=== PATIENT | female | born 1955 | race Caucasian/White ===

== ENCOUNTER → 2020-06-13 10:30 | Outpatient (CLI) | payer MEDICARE, OTHER, SELFPAY ==
[2020-06-13] MEDS: COVID-19 VACC #1, MRNA(MOD) 100 MCG/0.5 ML VIAL IM (10:43)
== END ==
PROVIDERS: Visit Provider Internal Medicine
DX: Z23 Encounter for immunization (principal)
CPT/HCPCS: 0011A; 91301

== ENCOUNTER → 2020-07-12 09:58 | Outpatient (CLI) | payer MEDICARE, OTHER, SELFPAY ==
[2020-07-12] MEDS: COVID-19 VACC #2, MRNA(MOD) 100 MCG/0.5 ML VIAL IM (10:06)
== END ==
PROVIDERS: Visit Provider Internal Medicine
DX: Z23 Encounter for immunization (principal)
CPT/HCPCS: 0012A; 91301

== ENCOUNTER → 2021-01-04 08:14 | Outpatient (CLI) | payer MEDICARE, OTHER, SELFPAY ==
[2021-01-04 08:36] LABS: Hematocrit 39.4 % (36-46); Hemoglobin 13.1 g/dL (12.0-16.0); Mean Corpuscular HGB Conc 33.2 % (30-36); Mean Corpuscular Hemoglobin 29.5 PG (26-34); Mean Corpuscular Volume 88.7 fL (80-100); Platelet Count 163 X10^3/uL (150-400); Red Blood Cell Count 4.44 X10^6/uL (4.0-5.2); Red Cell Distribution Width 12.9 % (11.6-14.8); White Blood Cell Count 5.7 X10^3/uL (4.5-11.0)
[2021-01-04 09:03] LABS: Alanine Aminotransferase 21 IU/L (<35); Albumin 4.3 g/dL (3.5-5.0); Albumin Globulin Ratio 1.5 (1.0-2.8); Alkaline Phosphatase 60 U/L (38-126); Aspartate Aminotransferase 20 IU/L (14-36); BUN Creatinine Ratio 21.9 (6-22); Bilirubin Total 0.4 mg/dL (0.2-1.3); Blood Urea Nitrogen 14 mg/dL (7-17); Calcium 9.1 mg/dL (8.4-10.2); Carbon Dioxide 28 mmol/L (22-32); Chloride 103 mmol/L (98-107); Cholesterol 154 mg/dL (140-199); Estimated Glomerular Filt Rate > 60.0 mL/min (>60); Globulin 2.8 g/dL (1.7-4.1); Glucose 103 mg/dL (80-110); HDL Cholesterol 51 mg/dL (40-60); HEMOLYSIS < 15 (0-50); LDL Cholesterol Calculated 73 mg/dL (<100); Potassium 4.4 mmol/L (3.4-5.1); Sodium 139 mmol/L (137-145); Total Protein 7.1 g/dL (6.3-8.2); Triglycerides 150 mg/dL (35-150)
[2021-01-04 09:08] LABS: Hemoglobin A1C% w Est Avg Glu 5.5 % (4.0-6.0)
[2021-01-04 09:33] LABS: TSH w/ Reflex to FT4 2.85 uIU/mL (0.47-4.68)
== END ==
PROVIDERS: PCP Registered Nurse Diabetes Educator; Referring Provider Registered Nurse Diabetes Educator; Visit Provider Registered Nurse Diabetes Educator
DX: R73.03 Prediabetes (principal); I10 Essential (primary) hypertension
CPT/HCPCS: 36415; 80053; 80061; 83036; 84443; 85027

== ENCOUNTER → 2021-10-23 08:35 | Outpatient (CLI) | payer MEDICARE, OTHER, SELFPAY ==
--- NOTE | 2021-10-23 | DI.MG.S_ITS ---
BILATERAL DIGITAL SCREENING MAMMOGRAM 3D/2D WITH CAD: 10/23/2021 CLINICAL: Routine screening. Comparison is made to exams dated: 05/09/2020 mammogram - [facility], 03/31/2018 mammogram, 04/03/2017 mammogram, and 03/05/2016 mammogram - [facility]. The tissue of both breasts is predominantly fatty. Current study was also evaluated with a Computer Aided Detection (CAD) system. There are benign calcifications in the right breast. No significant masses, calcifications, or other findings are seen in either breast. There has been no significant interval change. IMPRESSION: BENIGN There is no mammographic evidence of malignancy. A 1 year screening mammogram is recommended. Based on the Tyrer Cuzick model (a risk assessment model) the patient's lifetime risk is 4.7% and her 10 year risk is 2.4%. According to the ACR, ACS, and NCCN guidelines, an annual breast MRI exam along with mammogram is recommended if the patient's lifetime risk is 20% or greater. This exam was interpreted at Station ID: [id number]. NOTE: For mammograms, a report in lay terms will be sent to the patient. Approximately 15% of breast malignancies will not be visualized mammographically. In the management of a palpable breast mass, a negative mammogram must not discourage biopsy of a clinically suspicious lesion. Electronically Signed By: Trevin houser/shana:10/23/2021 10:38:45 letter sent: Normal Exam ACR BI-RADS Category 2: Benign Finding(s) 3342F
== END ==
PROVIDERS: PCP Registered Nurse Diabetes Educator; Referring Provider Registered Nurse Diabetes Educator; Visit Provider Registered Nurse Diabetes Educator
DX: Z12.31 Encounter for screening mammogram for malignant neoplasm of breast (principal)
CPT/HCPCS: 77063; 77067

== ENCOUNTER → 2022-03-19 09:36 | Outpatient (CLI) | payer MEDICARE, OTHER, SELFPAY ==
[2022-03-19 10:26] LABS: Mean Corpuscular HGB Conc 34.1 % (30-36); Mean Corpuscular Volume 87.8 fL (80-100); Platelet Count 141 X10^3/uL (150-400); Red Blood Cell Count 4.33 X10^6/uL (4.0-5.2); Red Cell Distribution Width 12.5 % (11.6-14.8); White Blood Cell Count 5.1 X10^3/uL (4.5-11.0)
[2022-03-19 10:47] LABS: Alanine Aminotransferase 23 IU/L (<35); Albumin 4.2 g/dL (3.5-5.0); Albumin Globulin Ratio 1.2 (1.0-2.8); Alkaline Phosphatase 63 U/L (38-126); Aspartate Aminotransferase 19 IU/L (14-36); BUN Creatinine Ratio 19.4 (6-22); Bilirubin Total 0.5 mg/dL (0.2-1.3); Blood Urea Nitrogen 12 mg/dL (7-17); Calcium 8.7 mg/dL (8.4-10.2); Carbon Dioxide 26 mmol/L (22-32); Chloride 102 mmol/L (98-107); Cholesterol 173 mg/dL (140-199); Estimated Glomerular Filt Rate > 60 mL/min (>60); Globulin 3.5 g/dL (1.7-4.1); Glucose 99 mg/dL (80-110); HDL Cholesterol 50 mg/dL (40-60); HEMOLYSIS < 15 (0-50); LDL Cholesterol Calculated 100 mg/dL (<100); Potassium 4.4 mmol/L (3.4-5.1); Sodium 139 mmol/L (137-145); Total Protein 7.7 g/dL (6.3-8.2); Triglycerides 116 mg/dL (35-150)
[2022-03-19 11:18] LABS: TSH w/ Reflex to FT4 2.93 uIU/mL (0.47-4.68)
== END ==
PROVIDERS: PCP Registered Nurse Diabetes Educator; Referring Provider Registered Nurse Diabetes Educator; Visit Provider Registered Nurse Diabetes Educator
DX: R73.01 Impaired fasting glucose (principal); I10 Essential (primary) hypertension
CPT/HCPCS: 36415; 80053; 80061; 84443; 85027

== ENCOUNTER → 2022-08-13 08:52 | Outpatient (CLI) | payer MEDICARE, OTHER, SELFPAY ==
[2022-08-13 09:52] LABS: Add Manual Diff / Slide Review NO; Basophils Absolute Auto 0 /uL (0-100); Basophils Percent Auto 0.3 % (0-2); Eosinophils Absolute Auto 100 /uL (0-450); Eosinophils Percent Auto 1.9 % (2-4); Hematocrit 38.7 % (36-46); Hemoglobin 13.2 g/dL (12.0-16.0); Lymphocytes Absolute Auto 1100 /uL (1100-4500); Mean Corpuscular HGB Conc 34.2 % (30-36); Mean Corpuscular Hemoglobin 30.3 PG (26-34); Mean Corpuscular Volume 88.5 fL (80-100); Monocytes Absolute Auto 300 /uL (0-900); Neutrophils Absolute Auto 3400 /uL (1500-7000); Neutrophils Percent Auto 67.8 % (50-75); Platelet Count 158 X10^3/uL (150-400); Red Blood Cell Count 4.37 X10^6/uL (4.0-5.2); Red Cell Distribution Width 12.8 % (11.6-14.8)
[2022-08-13 10:14] LABS: BUN Creatinine Ratio 16.2 (6-22); Blood Urea Nitrogen 12 mg/dL (7-17); Carbon Dioxide 27 mmol/L (22-32); Chloride 103 mmol/L (98-107); Estimated Glomerular Filt Rate > 60 mL/min (>60); Glucose 110 mg/dL (80-110); HEMOLYSIS < 15 (0-50); Potassium 4.7 mmol/L (3.4-5.1); Sodium 136 mmol/L (137-145)
== END ==
PROVIDERS: PCP Registered Nurse Diabetes Educator; Referring Provider Registered Nurse Diabetes Educator; Visit Provider Registered Nurse Diabetes Educator
DX: D69.6 Thrombocytopenia, unspecified (principal); I10 Essential (primary) hypertension
CPT/HCPCS: 36415; 80048; 85025

== ENCOUNTER → 2022-10-25 09:26 | Outpatient (CLI) | payer MEDICARE, OTHER, SELFPAY ==
--- NOTE | 2022-10-25 | DI.MG.S_ITS ---
BILATERAL DIGITAL SCREENING MAMMOGRAM 3D/2D WITH CAD: 10/25/2022 CLINICAL: Routine screening. Comparison is made to exams dated: 10/23/2021 mammogram - [facility], 05/09/2020 mammogram - [facility], and 03/31/2018 mammogram - [facility]. Both breasts are almost entirely fatty (category a/<25% glandular tissue). Current study was also evaluated with a Computer Aided Detection (CAD) system. There are benign calcifications in the right breast. No significant masses, calcifications, or other findings are seen in either breast. There has been no significant interval change. IMPRESSION: BENIGN There is no mammographic evidence of malignancy. A 1 year screening mammogram is recommended. Based on the Tyrer Cuzick model (a risk assessment model) the patient's lifetime risk is 4.5% and her 10 year risk is 2.3%. According to the ACR, ACS, and NCCN guidelines, an annual breast MRI exam along with mammogram is recommended if the patient's lifetime risk is 20% or greater. This exam was interpreted at Station ID: [id number]. NOTE: For mammograms, a report in lay terms will be sent to the patient. Approximately 15% of breast malignancies will not be visualized mammographically. In the management of a palpable breast mass, a negative mammogram must not discourage biopsy of a clinically suspicious lesion. Electronically Signed By: Sloan castillo/shana:10/30/2022 17:58:51 letter sent: Normal Exam ACR BI-RADS Category 2: Benign Finding(s) 3342F
== END ==
PROVIDERS: PCP Registered Nurse Diabetes Educator; Referring Provider Registered Nurse Diabetes Educator; Visit Provider Registered Nurse Diabetes Educator
DX: Z12.31 Encounter for screening mammogram for malignant neoplasm of breast (principal)
CPT/HCPCS: 77063; 77067

== ENCOUNTER 2022-11-05 07:01 | Day surgery (SDC) | payer MEDICARE, OTHER, SELFPAY ==
--- NOTE | 2022-11-05 | PATH_ITS ---
[facility] Accession Number: [id number] No. of containers..01 Tissue . 01 Material submitted: . colon - SIGMOID POLYP . 01 Diagnosis: Sigmoid Colon, Polyp: Colonic mucosa with no diagnostic abnormality, consistent with polypoid redundancy. Additional levels were examined. MRV 11/14/2022 1500 Local . 01 Electronically signed: . Dariana Chicas MD, Pathologist NPI- [id number] . 01 Gross description: . SIGMOID POLYP: Received in formalin is 1 fragment(s) of hoffman, soft tissue measuring 0.7 x 0.3 x 0.2 cm submitted entirely in 1 cassette(s) /ACACIA 11/11/2022 1706 Local . 01 Pathologist provided ICD-10: K63.5 . 01 CPT . 167184 Specimen Comment: A courtesy copy of this report has been sent to [phone] Performed at: 01 [facility] [address] [place] [address], [place], [place] [id number] MD Brannon Martinez MD Phone: [phone]
[2022-11-05 07:14] VITALS: BMI 39.1
[2022-11-05 07:22] VITALS: BP 146/77; PULSE 81; RESP 17; TEMP 37; O2SAT 93
[2022-11-05] MEDS: LACTATED RINGERS 1,000 ML 200 ML IV (07:24)
--- NOTE | 2022-11-05 08:17 | PM.HP.1 ---
History of Present Illness History of Present Illness Date Patient Seen: 11/05/22 Time Patient Seen: 08:17 Chief complaint: Screening Colonoscopy Narrative: 67-year-old woman here for screening colonoscopy. Personal history of colonic polyps. Last colonoscopy 2015. No family history of this or malignancy. No abdominal concerns including pain blood per rectum unintentional weight loss nausea vomiting. [facility] Medical History Anxiety Essential hypertension Impaired fasting blood sugar Obstructive sleep apnea Prediabetes Social History household members: spouse Smoking Status: Never smoker alcohol intake: never Meds Home Medications and Allergies Home Medications Medication Instructions Recorded Confirmed Type lisinopril 40 mg tablet 40 mg PO DAILY #90 tabs 08/20/22 11/05/22 Rx sertraline 25 mg tablet 25 mg PO DAILY #90 tabs 08/20/22 11/05/22 Rx aspirin 81 mg tablet 81 mg PO DAILY 11/05/22 11/05/22 History Allergies Allergy/AdvReac Type Severity Reaction Status Date / Time No Known Drug Allergies Allergy Verified 11/05/22 07:13 Exam Vital Signs (past 8 hours): - 11/05/22 07:22 Temperature 98.6 F Pulse Rate 81 Respiratory Rate 17 Blood Pressure 146/77 H Pulse Oximetry 93 Oxygen Delivery Method Room Air Oxygen Delivery Method Room Air Narrative Exam Narrative: General adult woman alert oriented no acute distress Abdomen soft nontender nondistended Assessment & Plan Assessment and plan (1) Personal history of colonic polyps: Status: Acute Assessment & Plan narrative: The patient requires colorectal screening and colonoscopy is recommended. Technical details were discussed. Risks, benefits, alternatives explained. Risks including but not limited to myocardial infarction, aspiration, bleeding, pain, missed lesion, incomplete examination, need for further radiographic studies, colonic perforation, and need for major abdominal surgery were discussed. All questions were answered to their satisfaction, and they are in agreement with this plan.
[2022-11-05 08:49] VITALS: BP 106/39; PULSE 76; RESP 16; TEMP 36; O2SAT 95
--- NOTE | 2022-11-05 08:52 | PM.OP.COLON ---
Operative Date/Time/Diagnoses Date of procedure: 11/05/22 Time of procedure: 08:52 Pre-op diagnosis: Personal history of colonic polyps Colorectal screening. Post-op diagnosis: other (Colonic polyp x1) Procedure & Clinicians Study performed: Colonoscopy and polypectomy Same procedure as scheduled: Yes Indications: Colorectal screening Surgeon: Jamar Mendez Procedure Notes Procedure in detail: The history and physical was performed/updated and the patient is ASA class is 2. The procedure was discussed in detail with the patient. Potential risks complications including infection, bleeding, missed diagnosis, perforation, need for surgery, and were explained. Their questions were answered and informed consent was obtained. Patient was brought to the procedure room and placed standard monitoring equipment. The patient's vital signs were monitored continuously throughout the entire procedure. Prior to starting time-out was performed. The patient was placed in the left lateral recumbent position. Procedural sedation was administered by anesthesia. Examination began with a thorough inspection of the perianal area there was no evidence of fissures, fistulae, external hemorrhoids or cutaneous malignancy. The colonoscopy scope was then placed into the anal canal and was advanced to the cecum, which was identified by the ileocecal valve, the appendiceal orifice and the confluence of the taenia. The scope was then slowly withdrawn examining colon thoroughly in all directions, irrigating it of any residual stool. Sigmoid colon-3 mm polyp removed with biopsy forceps. Extensive diverticulosis The patient tolerated the procedure well. They will be discharged once criteria are met. The prep was of good/excellent quality. The withdrawl time was 7 minutes. Specimen(s): other (Sigmoid colonic polyp) Impression: Colonic polyp x1 Post-procedure Recommendations: High fiber diet Plan for aftercare: Follow-up is dependent on pathology findings likely 5 years Disposition: same day surgery
[2022-11-05 08:54] VITALS: BP 100/32; PULSE 90; RESP 13; O2SAT 95
[2022-11-05 08:59] VITALS: BP 128/62; PULSE 88; RESP 19; O2SAT 96
[2022-11-05 09:11] VITALS: BP 113/74; PULSE 80; RESP 16; TEMP 36.2; O2SAT 97
== END 2022-11-05 09:21 | disposition home or self-care (01) ==
PROVIDERS: PCP Registered Nurse Diabetes Educator; Referring Provider Surgery; Visit Provider Surgery
PROC: 0DJD8ZZ Inspection of Lower Intestinal Tract, Via Natural or Artificial Opening Endoscopic (ICD-10-PCS; CPT 45378; principal; 2022-11-05 08:15)
DX: Z12.11 Encounter for screening for malignant neoplasm of colon (principal); Z86.010 Personal history of colon polyps; K57.30 Diverticulosis of large intestine without perforation or abscess without bleeding; K63.5 Polyp of colon
CPT/HCPCS: 45380; J2704; J3010

== ENCOUNTER → 2023-03-25 09:49 | Outpatient (CLI) | payer MEDICARE, OTHER, SELFPAY ==
[2023-03-25 10:48] LABS: Hematocrit 40.7 % (36-46); Hemoglobin 13.8 g/dL (12.0-16.0); Mean Corpuscular HGB Conc 33.8 % (30-36); Mean Corpuscular Hemoglobin 29.6 PG (26-34); Mean Corpuscular Volume 87.6 fL (80-100); Platelet Count 186 X10^3/uL (150-400); Red Blood Cell Count 4.65 X10^6/uL (4.0-5.2); Red Cell Distribution Width 12.6 % (11.6-14.8); White Blood Cell Count 6.5 X10^3/uL (4.5-11.0)
[2023-03-25 11:10] LABS: Alanine Aminotransferase 24 IU/L (<35); Albumin 4.4 g/dL (3.5-5.0); Albumin Globulin Ratio 1.2 (1.0-2.8); Alkaline Phosphatase 57 U/L (38-126); BUN Creatinine Ratio 21.7 (6-22); Bilirubin Total 0.8 mg/dL (0.2-1.3); Blood Urea Nitrogen 15 mg/dL (7-17); Calcium 9.5 mg/dL (8.4-10.2); Carbon Dioxide 27 mmol/L (22-32); Chloride 102 mmol/L (98-107); Cholesterol 196 mg/dL (140-199); Estimated Glomerular Filt Rate > 60 mL/min (>60); Globulin 3.7 g/dL (1.7-4.1); Glucose 106 mg/dL (80-110); HDL Cholesterol 56 mg/dL (40-60); LDL Cholesterol Calculated 111 mg/dL (<100); Potassium 4.2 mmol/L (3.4-5.1); Sodium 135 mmol/L (137-145); Total Protein 8.1 g/dL (6.3-8.2); Triglycerides 146 mg/dL (35-150)
[2023-03-28 14:39] LABS: HEMOLYSIS 22 (0-50)
[2023-03-28 14:42] LABS: Aspartate Aminotransferase 28 IU/L (14-36)
== END ==
LOC: LAB 09:50
PROVIDERS: PCP Registered Nurse Diabetes Educator; Referring Provider Registered Nurse Diabetes Educator; Visit Provider Registered Nurse Diabetes Educator
DX: I10 Essential (primary) hypertension (principal); R73.01 Impaired fasting glucose; D69.6 Thrombocytopenia, unspecified
CPT/HCPCS: 36415; 80053; 80061; 85027

== ENCOUNTER → 2023-06-27 09:24 | Outpatient (CLI) | payer MEDICARE, OTHER, SELFPAY ==
--- NOTE | 2023-06-27 09:25 | DI.RAD.S_ITS ---
Bone Density Report Name: KARTHIKEYAN PEARSON Age: 68 Sex: Female Ethnicity: White Date of : 1955 Indication: postmenopausal; screening for osteoporosis; Referring Provider: RICK NIXON Study: Bone densitometry was performed. Exam Date: June 27, 2023 Accession number: [id number] Bone Density: Region BMD T-score Z-score Classification AP Spine(L1-L4) 1.158 1.0 3.0 Normal Femoral Neck (Left) 0.908 0.5 2.2 Normal Total Hip (Left) 1.051 0.9 2.3 Normal Femoral Neck (Right) 0.811 -0.3 1.3 Normal Total Hip (Right) 0.961 0.2 1.5 Normal Total Hip Mean 1.006 0.6 1.9 Normal World Health Organization criteria for BMD impression classify patients as: Normal (T-score at or above -1.0), Osteopenia (T-score between -1.0 and -2.5), or Osteoporosis (T-score at or below -2.5). 10-year Fracture Risk: FRAX not reported because: All T-scores for Spine Total, Hip Total, Femoral Neck at or above -1.0 Impression: The patient has normal bone mass. Discussion: BONE DENSITY IS ABOVE THE MINIMUM DESIRABLE LEVEL AT ALL SKELETAL SITES TESTED. This patient's bone mineral density is above the minimum desirable level (T-score -1.0 or better) at all sites measured. The patient should follow a healthful lifestyle (good nutrition with adequate calcium and vitamin D, and appropriate weight-bearing exercise). Follow-Up: Consider repeating this study in 5 years or sooner if there is some new clinical indication. Reported by: KEEGAN JENSEN M.D. on 06/27/2023 10:01:00 AM.
== END ==
LOC: RAD 09:24
PROVIDERS: PCP Registered Nurse Diabetes Educator; Referring Provider Registered Nurse Diabetes Educator; Visit Provider Registered Nurse Diabetes Educator
DX: Z13.820 Encounter for screening for osteoporosis (principal); Z78.0 Asymptomatic menopausal state
CPT/HCPCS: 77080

== ENCOUNTER → 2023-07-07 11:15 | Outpatient (CLI) | payer MEDICARE, OTHER, SELFPAY ==
--- NOTE | 2023-07-07 11:17 | DI.RAD.S_ITS ---
PROCEDURE: XR HIP W PEL IF DONE MOE MIN 4V INDICATIONS: eval bilateral hip pain, right lower extremity pain TECHNIQUE: AP pelvis with lateral view(s) of the right hip(s). COMPARISON: None. FINDINGS: Bones: No fractures or dislocations. Severe right hip joint osteoarthritic changes are seen. Moderate left hip joint osteoarthritic changes also noted. No definite avascular necrosis of femoral head. Pelvic ring appears intact. No suspicious bony lesions. Soft tissues: The visualized bowel gas pattern is normal. No suspicious soft tissue calcifications. IMPRESSION: Severe right hip joint osteoarthritis and moderate left hip joint osteoarthritis. No pelvic or hip fracture. No evidence of avascular necrosis. Dictated by: Danish Martínez M.D. on 07/07/2023 at 14:24 Approved by: Danish Martínez M.D. on 07/07/2023 at 14:25
--- NOTE | 2023-07-07 11:17 | DI.RAD.S_ITS ---
PROCEDURE: XR LUMBAR SPINE MIN 4V INDICATIONS: eval bilateral hip pain, low back pain, RLE pain TECHNIQUE: 5 views of the lumbar spine were acquired, including bilateral oblique views. COMPARISON: None. FINDINGS: Bones: 5 nonrib-bearing vertebrae are present. There is mild leftward curvature of thoracolumbar spine centered at L2 level. Loss of disc height, degenerative endplate changes and bilateral facet arthrosis throughout lumbar spine is seen. No vertebral body compression fractures. No suspicious bony lesions. Soft tissues: Overlying bowel gas pattern is normal. No suspicious soft tissue calcifications. Oblique images: No pars defects. IMPRESSION: Mild levoscoliosis of thoracolumbar spine centered at L2 level. No acute compression fracture or significant spondylolisthesis. [id number] degenerative disc disease throughout lumbar spine. No gross pars defects. Dictated by: Danish Martínez M.D. on 07/07/2023 at 14:25 Approved by: Danish Martínez M.D. on 07/07/2023 at 14:32
== END ==
PROVIDERS: PCP Registered Nurse Diabetes Educator; Referring Provider Registered Nurse Diabetes Educator; Visit Provider Registered Nurse Diabetes Educator
DX: M16.0 Bilateral primary osteoarthritis of hip (principal); M51.36 Other intervertebral disc degeneration, lumbar region; M25.551 Pain in right hip; M25.552 Pain in left hip; M79.604 Pain in right leg; M54.50 Low back pain, unspecified; G89.29 Other chronic pain; M41.9 Scoliosis, unspecified
CPT/HCPCS: 72110; 73522

== ENCOUNTER → 2023-11-17 11:06 | Outpatient (CLI) | payer MEDICARE, OTHER, SELFPAY ==
--- NOTE | 2023-11-17 11:07 | DI.MG.S_ITS ---
BILATERAL DIGITAL SCREENING MAMMOGRAM 3D/2D WITH CAD: 11/17/2023 CLINICAL: Routine screening. Comparison is made to exams dated: 10/25/2022 mammogram, 10/23/2021 mammogram - , and 05/09/2020 mammogram - [facility]. There are scattered areas of fibroglandular density in both breasts (category b / 25%-50% glandular tissue). Current study was also evaluated with a Computer Aided Detection (CAD) system. There are benign calcifications in the right breast. No significant masses, calcifications, or other findings are seen in either breast. There has been no significant interval change. IMPRESSION: BENIGN There is no mammographic evidence of malignancy. A 1 year screening mammogram is recommended. Based on the Tyrer Cuzick model (a risk assessment model) the patient's lifetime risk is 6.4% and her 10 year risk is 3.5%. According to the ACR, ACS, and NCCN guidelines, an annual breast MRI exam along with mammogram is recommended if the patient's lifetime risk is 20% or greater. This exam was interpreted at Station ID: [id number]. NOTE: For mammograms, a report in lay terms will be sent to the patient. Approximately 15% of breast malignancies will not be visualized mammographically. In the management of a palpable breast mass, a negative mammogram must not discourage biopsy of a clinically suspicious lesion. Electronically Signed By: Dung garcia/shana:11/17/2023 11:51:29 letter sent: Normal Exam ACR BI-RADS Category 2: Benign Finding(s) 3342F
== END ==
LOC: MAMMO 11:07
PROVIDERS: PCP Registered Nurse Diabetes Educator; Referring Provider Registered Nurse Diabetes Educator; Visit Provider Registered Nurse Diabetes Educator
DX: Z12.31 Encounter for screening mammogram for malignant neoplasm of breast (principal); R92.323 Mammographic fibroglandular density, bilateral breasts
CPT/HCPCS: 77063; 77067

== ENCOUNTER → 2024-03-30 11:04 | Outpatient (CLI) | payer MEDICARE, OTHER, SELFPAY ==
[2024-03-30 11:44] LABS: Hematocrit 35.6 % (36-46); Hemoglobin 11.7 g/dL (12.0-16.0); Mean Corpuscular HGB Conc 32.9 % (30-36); Mean Corpuscular Hemoglobin 28.2 PG (26-34); Mean Corpuscular Volume 85.8 fL (80-100); Platelet Count 194 X10^3/uL (150-400); Red Blood Cell Count 4.15 X10^6/uL (4.0-5.2); Red Cell Distribution Width 13.2 % (11.6-14.8); White Blood Cell Count 5.2 X10^3/uL (4.5-11.0)
[2024-03-30 12:06] LABS: Alanine Aminotransferase 17 IU/L (<35); Albumin 4.2 g/dL (3.5-5.0); Albumin Globulin Ratio 1.4 (1.0-2.8); Alkaline Phosphatase 54 U/L (38-126); Aspartate Aminotransferase 22 IU/L (14-36); BUN Creatinine Ratio 45.3 (6-22); Bilirubin Total 0.3 mg/dL (0.2-1.3); Blood Urea Nitrogen 39 mg/dL (7-17); Calcium 9.4 mg/dL (8.4-10.2); Carbon Dioxide 23 mmol/L (22-32); Chloride 105 mmol/L (98-107); Cholesterol 173 mg/dL (140-199); Estimated Glomerular Filt Rate > 60 mL/min (>60); Globulin 2.9 g/dL (1.7-4.1); Glucose 103 mg/dL (80-110); HDL Cholesterol 54 mg/dL (40-60); HEMOLYSIS < 15 (0-50); LDL Cholesterol Calculated 84 mg/dL (<100); Potassium 5.2 mmol/L (3.4-5.1); Sodium 135 mmol/L (137-145); Total Protein 7.1 g/dL (6.3-8.2); Triglycerides 173 mg/dL (35-150)
== END ==
PROVIDERS: PCP Registered Nurse Diabetes Educator; Referring Provider Registered Nurse Diabetes Educator; Visit Provider Registered Nurse Diabetes Educator
DX: E78.5 Hyperlipidemia, unspecified (principal); R73.01 Impaired fasting glucose; I10 Essential (primary) hypertension
CPT/HCPCS: 36415; 80053; 80061; 83036; 85027

== ENCOUNTER → 2024-04-01 14:07 | Outpatient (CLI) | payer MEDICARE, OTHER, SELFPAY ==
[2024-04-02 11:08] LABS: Fecal Immunochemical Test Negative (Negative)
== END ==
PROVIDERS: PCP Registered Nurse Diabetes Educator; Referring Provider Registered Nurse Diabetes Educator; Visit Provider Registered Nurse Diabetes Educator
DX: Z12.11 Encounter for screening for malignant neoplasm of colon (principal)
CPT/HCPCS: 82274

== ENCOUNTER → 2024-05-24 09:46 | Outpatient (CLI) | payer MEDICARE, OTHER, SELFPAY ==
[2024-05-24 11:13] LABS: Hematocrit 33.4 % (36-46); Hemoglobin 11.3 g/dL (12.0-16.0); Mean Corpuscular HGB Conc 33.9 % (30-36); Mean Corpuscular Hemoglobin 28.2 PG (26-34); Mean Corpuscular Volume 83.3 fL (80-100); Platelet Count 191 X10^3/uL (150-400); Red Blood Cell Count 4.01 X10^6/uL (4.0-5.2); Red Cell Distribution Width 13.9 % (11.6-14.8); White Blood Cell Count 5.1 X10^3/uL (4.5-11.0)
[2024-05-24 11:37] LABS: HEMOLYSIS < 15 (0-50); Iron 44 ug/dL (37-170)
[2024-05-24 11:42] LABS: BUN Creatinine Ratio 21.1 (6-22); Blood Urea Nitrogen 16 mg/dL (7-17); Calcium 8.9 mg/dL (8.4-10.2); Carbon Dioxide 24 mmol/L (22-32); Chloride 106 mmol/L (98-107); Estimated Glomerular Filt Rate > 60 mL/min (>60); Glucose 94 mg/dL (80-110); HEMOLYSIS < 15 (0-50); Potassium 4.7 mmol/L (3.4-5.1); Sodium 138 mmol/L (137-145)
[2024-05-24 11:49] LABS: Percent Iron Saturation 15 % (15-50); Total Iron Binding Capacity 289 ug/dL (265-497); Transferrin 259 mg/dL (206-381)
[2024-05-24 12:18] LABS: Ferritin 12 ng/mL (11-264)
[2024-05-24 12:31] LABS: Vitamin B12 593 pg/mL (239-931)
== END ==
PROVIDERS: PCP Registered Nurse Diabetes Educator; Referring Provider Registered Nurse Diabetes Educator; Visit Provider Registered Nurse Diabetes Educator
DX: D64.9 Anemia, unspecified (principal); R79.9 Abnormal finding of blood chemistry, unspecified
CPT/HCPCS: 80048; 82607; 82728; 83540; 83550; 85027

== ENCOUNTER 2024-07-26 10:46 | Emergency (ER) | payer MEDICARE, OTHER, SELFPAY ==
[2024-07-26 10:52] VITALS: BP 162/70; PULSE 92; RESP 18; TEMP 36.1; O2SAT 97; BMI 33.5
--- NOTE | 2024-07-26 11:08 | EKG_ITS ---
[address] [address] Test Date: 2024-07-26 Pat Name: Michelle Gonzalez Department: Room: Gender: Female Training Director: GARRY : 1955 Requested By: Order Number: [id number] Reading MD: Lorne Rosales MD Measurements Intervals [place] Rate: 90 P: 50 W[place]: 124 QRS: 43 QRSD: 106 T: 92 QT: 350 QTc: 428 Interpretive Statements Normal sinus rhythm Incomplete left bundle branch block Nonspecific T wave abnormality NO PRIOR TRACING Electronically Signed On 07-26-2024 14:31:27 PDT by Lorne Rosales MD
[2024-07-26 11:16] LABS: Add Manual Diff / Slide Review NO; Basophils Absolute Auto 100 /uL (0-100); Basophils Percent Auto 0.8 % (0-2); Eosinophils Absolute Auto 100 /uL (0-450); Eosinophils Percent Auto 0.7 % (2-4); Hematocrit 43.4 % (36-46); Hemoglobin 14.2 g/dL (12.0-16.0); Lymphocytes Absolute Auto 1500 /uL (1100-4500); Lymphocytes Percent Auto 13.7 % (25-40); Mean Corpuscular HGB Conc 32.8 % (30-36); Mean Corpuscular Hemoglobin 27.7 PG (26-34); Mean Corpuscular Volume 84.4 fL (80-100); Monocytes Absolute Auto 700 /uL (0-900); Neutrophils Absolute Auto 8700 /uL (1500-7000); Neutrophils Percent Auto 78.8 % (50-75); Platelet Count 242 X10^3/uL (150-400); Red Blood Cell Count 5.14 X10^6/uL (4.0-5.2)
[2024-07-26 11:23] LABS: Alanine Aminotransferase 23 IU/L (<35); Albumin 4.9 g/dL (3.5-5.0); Albumin Globulin Ratio 1.5 (1.0-2.8); Alkaline Phosphatase 62 U/L (38-126); Aspartate Aminotransferase 27 IU/L (14-36); BUN Creatinine Ratio 13.3 (6-22); Bilirubin Total 0.6 mg/dL (0.2-1.3); Blood Urea Nitrogen 11 mg/dL (7-17); Calcium 9.6 mg/dL (8.4-10.2); Carbon Dioxide 24 mmol/L (22-32); Chloride 103 mmol/L (98-107); Estimated Glomerular Filt Rate > 60 mL/min (>60); Globulin 3.2 g/dL (1.7-4.1); Glucose 133 mg/dL (70-99); HEMOLYSIS 15 (0-50); Lipase 116 U/L (23-300); Potassium 4.3 mmol/L (3.4-5.1); Sodium 140 mmol/L (137-145); Total Protein 8.1 g/dL (6.3-8.2)
[2024-07-26 11:46] LABS: Urine Volume 10mL (spun)
[2024-07-26 11:47] LABS: Squamous Epithelial Cell Urine 10-30 /HPF (0-5/HPF); WBC Urine 30-100/HPF (0-5/HPF)
[2024-07-26 11:48] LABS: Bacteria Urine Many (>30)
[2024-07-26 11:49] LABS: Culture Indicated Urine Specimen Cultured; RBC Urine 0-1/HPF (0-5/HPF)
[2024-07-26 12:13] VITALS: PULSE 82; O2SAT 98
[2024-07-26 12:14] VITALS: BP 157/69; PULSE 71; O2SAT 98
[2024-07-26 12:30] VITALS: BP 132/63; PULSE 69; O2SAT 97
--- NOTE | 2024-07-26 12:31 | DI.US.S_ITS ---
PROCEDURE: US ABDOMEN LIMITED INDICATIONS: RUQ PAIN TECHNIQUE: Real-time scanning was performed of the abdominal and retroperitoneal organs, with image documentation. COMPARISON: None. FINDINGS: Liver: Liver is normal in size . Increased liver parenchymal echotexture is seen. No gross solid appearing hepatic lesion. Gallbladder: Sludge material is seen within the gallbladder lumen. No gallstones. No gallbladder wall thickening or pericholecystic fluid. No sonographic Snider sign. Biliary ducts: Intrahepatic bile ducts are non-dilated. Extrahepatic bile duct caliber measures 3.9 mm. Normal is 6-7 mm or less in diameter, or 10 mm or less post-cholecystectomy. Pancreas: Visualized portions of the pancreas are sonographically normal. Miscellaneous: No free abdominal fluid. IMPRESSION: 1. Sludge material within gallbladder lumen. No gallstones. No evidence of acute cholecystitis. 2. Hepatic steatosis, no solid appearing hepatic lesion. 3. No biliary ductal dilatation. Dictated by: Danish Martínez M.D. on 07/26/2024 at 13:22 Approved by: Danish Martínez M.D. on 07/26/2024 at 13:23
--- NOTE | 2024-07-26 12:33 | ED_ITS ---
HPI - Abdominal Pain <Kiesha Hdz PA-C - Last Filed: 07/26/24 14:10> General Chief Complaint: Abdominal Pain Stated Complaint: Upper Stomach pain 3 months Time Seen by Provider: 07/26/24 11:32 History of Present Illness HPI narrative: 69-year-old female with past medical history osteoarthritis, depression, hypertension presents to the ED with worsening, generalized abdominal pain. Patient states that she has had abdominal discomfort for the last 3 months. Patient states that the discomfort is aggravated with eating. Patient states that she feels a crampy pain after eating, sometimes will have nausea and vomiting. Vomiting seems to relieve her discomfort. Patient travel to [place] recently, had an exacerbation of her symptoms, including diarrhea. Patient was seen in the ED, had a CT scan which shows diffuse enteritis, fat containing hiatal hernia, and no other acute findings. Patient was also diagnosed with a UTI, for which she was treated with cephalexin. Patient states that her abdominal symptoms seem to initially improve with the cephalexin, however her symptoms have returned and are worse now. Patient does state that she never had any urinary symptoms including dysuria, frequent urination. Currently, patient has no dysuria either. Patient denies URI symptoms, fever, chills, chest pain, shortness of breath. Patient does endorse worsening constipation over the last 3 months. Patient also notes that her symptoms coincided with her starting Celebrex for osteoarthritis. Related Data Home Medications Medication Instructions Recorded Confirmed aspirin 81 mg tablet 81 mg PO DAILY 11/05/22 07/28/24 Previous Rx's Medication Instructions Recorded amlodipine 10 mg tablet 10 mg PO DAILY #90 tabs 04/06/24 lisinopril 40 mg tablet 40 mg PO DAILY #90 tabs 04/06/24 sertraline 25 mg tablet 25 mg PO DAILY #90 tabs 04/06/24 ferrous sulfate 325 mg (65 mg 325 mg PO DAILY #90 tabs 05/29/24 iron) tablet cefpodoxime 200 mg tablet 200 mg PO Q12H 10 days #20 tabs 07/26/24 Allergies Allergy/AdvReac Type Severity Reaction Status Date / Time No Known Drug Allergies Allergy Verified 07/28/24 13:01 Review of Systems <Kiesha Hdz PA-C - Last Filed: 07/26/24 14:10> Constitutional Constitutional: Denies chills, Denies fatigue, Denies fever(s), Denies frequent falls, Denies lethargy and Denies weakness Eyes Eyes: Denies change in vision, Denies eye discharge, Denies irritation and Denies loss of vision ENT Ears, Nose, Mouth, and Throat: Denies change in voice, Denies dizziness, Denies neck pain, Denies sore throat and Denies throat swelling Cardiovascular Cardiovascular: Denies chest pain, Denies irregular heart rhythm, Denies lightheadedness, Denies palpitations, Denies dyspnea, Denies dyspnea on exertion and Denies orthopnea Respiratory Respiratory: Denies cough, Denies dyspnea, Denies dyspnea on exertion and Denies wheezing Gastrointestinal Gastrointestinal: Reports abdominal pain, Denies change in bowel habits, Reports constipation, Denies diarrhea, Reports nausea and Reports vomiting Genitourinary Genitourinary: Denies dysuria Musculoskeletal Musculoskeletal: Denies neck pain and Denies numbness Integumentary/Breasts Skin/Breast: Denies pruritus, Denies erythema, Denies rash and Denies wounds Neurologic Neurologic: Denies behavioral changes, Denies confusion, Denies dizziness, Denies frequent falls, Denies loss of vision, Denies numbness and Denies weakness Psychiatric Psychiatric: Denies anxiety, Denies behavioral changes, Denies confusion, Denies depression, Denies homicidal ideation and Denies suicidal ideation Endocrine Endocrine: Denies fatigue, Denies flushing and Denies palpitations Hematologic/Lymphatic Hematologic/Lymphatic: Denies easy bruising Allergic/Immunologic Allergic/Immunologic: Denies urticaria, Denies throat swelling and Denies wheezing Patient History <Kiesha dHz PA-C - Last Filed: 07/26/24 14:10> Medical History Degenerative disc disease, lumbar Bilateral primary osteoarthritis of hip Dyslipidemia Impaired fasting blood sugar Prediabetes Obstructive sleep apnea Anxiety Essential hypertension Social History household members: spouse alcohol intake: never Smoking Status: Never smoker Exam <Kiesha Hdz PA-C - Last Filed: 07/26/24 14:10> Narrative Exam Narrative: Const General:?cooperative, healthy appearing and comfortable HENIL Head:?normal to inspection Ears:?hearing grossly normal bilaterally Nose:?external nose normal Face and sinus:?normal facial exam and sinuses nontender Mouth:?oral mucosae normal Throat:?posterior oropharynx normal Eyes General:?appearance normal, both eyes and all related structures Neck Neck:?normal visual inspection and no lymphadenopathy noted Resp Effort & Inspection:?normal respiratory effort Auscultation:?clear to auscultation bilaterally Cardio Rate:?regular rate Rhythm:?regular rhythm GI Abdomen is soft, nondistended. Generalized, mild tenderness to palpation. Neuro General:?patient alert, patient awake and patient oriented x3 Initial Vital Signs Initial Vital Signs: Vital Signs Temperature 97.0 F L 07/26/24 10:52 Pulse Rate 92 H 07/26/24 10:52 Respiratory Rate 18 07/26/24 10:52 Blood Pressure 162/70 H 07/26/24 10:52 Pulse Oximetry 97 07/26/24 10:52 Oxygen Delivery Method Room Air 07/26/24 10:52 <Brandi Gonzalez DO - Last Filed: 07/30/24 07:46> Initial Vital Signs Initial Vital Signs: Vital Signs Temperature 97.0 F L 07/26/24 10:52 Pulse Rate 92 H 07/26/24 10:52 Respiratory Rate 18 07/26/24 10:52 Blood Pressure 162/70 H 07/26/24 10:52 Pulse Oximetry 97 07/26/24 10:52 Oxygen Delivery Method Room Air 07/26/24 10:52 Course <Kiesha Hdz PA-C - Last Filed: 07/26/24 14:10> Orders Ordered: Discontinued Medications Famotidine (Famotidine 20 Mg/2 Ml Vial) 40 mg IV NOW TAMANNA Last Admin: 07/26/24 12:42 Dose: 40 mg Documented By: YANIV Ceftriaxone Sodium 1,000 mg/ (Sodium Chloride) 100 mls @ 200 mls/hr IV NOW ONE Stop: 07/26/24 12:32 Last Infusion: 07/26/24 13:40 Dose: Infused Documented By: Admin: 07/26/24 12:42 Dose: 200 mls/hr Documented By: YANIV Ondansetron HCl (Ondansetron 4 Mg/2 Ml Inj) 4 mg IV NOW PRN PRN Reason: Nausea And Vomiting Ondansetron HCl (Ondansetron 4 Mg Odt) 4 mg PO NOW PRN PRN Reason: Nausea And Vomiting Vital Signs Vital signs: Vital Signs - 8 hr 05/05/25 10:52 07/26/24 12:13 07/26/24 12:14 Temperature 97.0 F L Pulse Rate 92 H 82 71 Respiratory Rate 18 Blood Pressure 162/70 H Pulse Oximetry 97 98 98 Oxygen Delivery Method Room Air Room Air 07/26/24 12:14 07/26/24 12:30 07/26/24 12:30 Temperature Pulse Rate 69 Respiratory Rate Blood Pressure 157/69 H 132/63 Pulse Oximetry 97 Oxygen Delivery Method 07/26/24 13:00 07/26/24 13:00 Temperature Pulse Rate 64 Respiratory Rate Blood Pressure 129/59 L Pulse Oximetry 97 Oxygen Delivery Method <Brandi Gonzalez DO - Last Filed: 07/30/24 07:46> Orders Ordered: Discontinued Medications Famotidine (Famotidine 20 Mg/2 Ml Vial) 40 mg IV NOW TAMANNA Last Admin: 07/26/24 12:42 Dose: 40 mg Documented By: YANIV Ceftriaxone Sodium 1,000 mg/ (Sodium Chloride) 100 mls @ 200 mls/hr IV NOW ONE Stop: 07/26/24 12:32 Last Infusion: 07/26/24 13:40 Dose: Infused Documented By: Admin: 07/26/24 12:42 Dose: 200 mls/hr Documented By: YANIV Ondansetron HCl (Ondansetron 4 Mg/2 Ml Inj) 4 mg IV NOW PRN PRN Reason: Nausea And Vomiting Ondansetron HCl (Ondansetron 4 Mg Odt) 4 mg PO NOW PRN PRN Reason: Nausea And Vomiting Vital Signs Vital signs: Vital Signs - 8 hr 07/26/24 10:52 07/26/24 12:13 07/26/24 12:14 Temperature 97.0 F L Pulse Rate 92 H 82 71 Respiratory Rate 18 Blood Pressure 162/70 H Pulse Oximetry 97 98 98 Oxygen Delivery Method Room Air Room Air 07/26/24 12:14 07/26/24 12:30 07/26/24 12:30 Temperature Pulse Rate 69 Respiratory Rate Blood Pressure 157/69 H 132/63 Pulse Oximetry 97 Oxygen Delivery Method 07/26/24 13:00 07/26/24 13:00 Temperature Pulse Rate 64 Respiratory Rate Blood Pressure 129/59 L Pulse Oximetry 97 Oxygen Delivery Method MDM - Abdominal Pain <Kiesha Hdz PA-C - Last Filed: 07/26/24 14:10> Lab Data 07/26/24 11:00 07/26/24 11:00 Labs: Lab Results 07/26/24 Range/Units 11:00 WBC 11.0 (4.5-11.0) X10^3/uL RBC 5.14 (4.0-5.2) X10^6/uL Hgb 14.2 (12.0-16.0) g/dL Hct 43.4 (36-46) % MCV 84.4 (80-100) fL MCH 27.7 (26-34) PG MCHC 32.8 (30-36) % RDW 14.0 (11.6-14.8) % Plt Count 242 (150-400) X10^3/uL Neut % (Auto) 78.8 H (50-75) % Lymph % (Auto) 13.7 L (25-40) % [place] % (Auto) 6.0 (3-14) % Eos % (Auto) 0.7 L (2-4) % Baso % (Auto) 0.8 (0-2) % Neut # (Auto) 8700 H (2424-8429) /uL Lymph # (Auto) 1500 (4343-3800) /uL [place] # (Auto) 700 (0-900) /uL Eos # (Auto) 100 (0-450) /uL Baso # (Auto) 100 (0-100) /uL Sodium 140 (137-145) mmol/L Potassium 4.3 (3.4-5.1) mmol/L Chloride 103 (98-107) mmol/L Carbon Dioxide 24 (22-32) mmol/L BUN 11 (7-17) mg/dL Creatinine 0.83 (0.52-1.04) mg/dL Estimated GFR > 60 (>60) mL/min BUN/Creatinine Ratio 13.3 (6-22) Glucose 133 H (70-99) mg/dL Calcium 9.6 (8.4-10.2) mg/dL Total Bilirubin 0.6 (0.2-1.3) mg/dL AST 27 (14-36) IU/L ALT 23 (<35) IU/L Alkaline Phosphatase 62 (38-126) U/L Total Protein 8.1 (6.3-8.2) g/dL Albumin 4.9 (3.5-5.0) g/dL Globulin 3.2 (1.7-4.1) g/dL Albumin/Globulin Ratio 1.5 (1.0-2.8) Lipase 116 (23-300) U/L Urine RBC 0-1/hpf (0-5/HPF) Urine WBC 30-100/hpf H (0-5/HPF) Ur Squamous Epith Cells 10-30 /hpf H (0-5/HPF) Urine Bacteria Many (>30) H (None) Ur Culture Indicated? Specimen cultured Vol Urine Centrifuged 10ml (spun) Point of care testing: Urine Dip Bedside Urine Glucose Negative Bedside Urine Bilirubin - Negative Bedside Urine Ketone +/- 5 Urine Specific [place] 1.025 Bedside Urine Occult Blood + Bedside Urine pH 5.5 Bedside Urine Protein + 30 Bedside Urine Urobilinogen - Negative Bedside Urine Nitrite - Negative Bedside Urine Leukocytes +++ 500 Esterase MDM Narrative Medical decision making narrative: 69-year-old female with past medical history osteoarthritis, depression, hypertension presents to the ED with worsening, generalized abdominal pain. Concern for biliary etiology versus gastritis versus GERD versus PUD versus H pylori infection versus constipation versus pancreatitis versus gastroenteritis versus UTI versus nephrolithiasis versus other intra-abdominal pathology versus other. Will obtain labs, lipase, UA, ultrasound abdomen. Will consider CT scan. Will give a dose of Rocephin, Pepcid AC. There was some improvement in symptoms with the medications. Labs within normal limits. UA does show a UTI. Abdominal ultrasound as follows: IMPRESSION: 1. Sludge material within gallbladder lumen. No gallstones. No evidence of acute cholecystitis. 2. Hepatic steatosis, no solid appearing hepatic lesion. 3. No biliary ductal dilatation. Discussed findings with patient. Patient's symptoms are most consistent with gastritis versus GERD versus peptic ulcer versus H pylori infection. Recommend Pepcid AC twice a day. Also recommend addressing the constipation with increased fiber and fluid intake, MiraLax, Dulcolax. Recommend follow-up with PCP as soon as possible for further evaluation and GI referral. Recommend stopping Celebrex, other NSAIDs. Recommend Tylenol for pain control for arthritis. ED return precautions were discussed with patient. Patient verbalized understanding. Medical records reviewed: Yes <Brandi Gonzalez DO - Last Filed: 07/30/24 07:46> Lab Data Labs: Lab Results 07/26/24 Range/Units 11:00 WBC 11.0 (4.5-11.0) X10^3/uL RBC 5.14 (4.0-5.2) X10^6/uL Hgb 14.2 (12.0-16.0) g/dL Hct 43.4 (36-46) % MCV 84.4 (80-100) fL MCH 27.7 (26-34) PG MCHC 32.8 (30-36) % RDW 14.0 (11.6-14.8) % Plt Count 242 (150-400) X10^3/uL Neut % (Auto) 78.8 H (50-75) % Lymph % (Auto) 13.7 L (25-40) % [place] % (Auto) 6.0 (3-14) % Eos % (Auto) 0.7 L (2-4) % Baso % (Auto) 0.8 (0-2) % Neut # (Auto) 8700 H (7305-6721) /uL Lymph # (Auto) 1500 (0044-8343) /uL [place] # (Auto) 700 (0-900) /uL Eos # (Auto) 100 (0-450) /uL Baso # (Auto) 100 (0-100) /uL Sodium 140 (137-145) mmol/L Potassium 4.3 (3.4-5.1) mmol/L Chloride 103 (98-107) mmol/L Carbon Dioxide 24 (22-32) mmol/L BUN 11 (7-17) mg/dL Creatinine 0.83 (0.52-1.04) mg/dL Estimated GFR > 60 (>60) mL/min BUN/Creatinine Ratio 13.3 (6-22) Glucose 133 H (70-99) mg/dL Calcium 9.6 (8.4-10.2) mg/dL Total Bilirubin 0.6 (0.2-1.3) mg/dL AST 27 (14-36) IU/L ALT 23 (<35) IU/L Alkaline Phosphatase 62 (38-126) U/L Total Protein 8.1 (6.3-8.2) g/dL Albumin 4.9 (3.5-5.0) g/dL Globulin 3.2 (1.7-4.1) g/dL Albumin/Globulin Ratio 1.5 (1.0-2.8) Lipase 116 (23-300) U/L Urine RBC 0-1/hpf (0-5/HPF) Urine WBC 30-100/hpf H (0-5/HPF) Ur Squamous Epith Cells 10-30 /hpf H (0-5/HPF) Urine Bacteria Many (>30) H (None) Ur Culture Indicated? Specimen cultured Vol Urine Centrifuged 10ml (spun) Point of care testing: Urine Dip Bedside Urine Glucose Negative Bedside Urine Bilirubin - Negative Bedside Urine Ketone +/- 5 Urine Specific [place] 1.025 Bedside Urine Occult Blood + Bedside Urine pH 5.5 Bedside Urine Protein + 30 Bedside Urine Urobilinogen - Negative Bedside Urine Nitrite - Negative Bedside Urine Leukocytes +++ 500 Esterase Discharge Plan Departure Patient Disposition: Home Clinical Impression: Abdominal pain Qualifiers: Abdominal location: generalized Qualified Code(s): R10.84 - Generalized abdominal pain Instructions: DI for Abdominal Pain-Adult Activity Restrictions/Additional Instructions: You were evaluated in the ED today for abdominal pain. Your labs, ultrasound were normal. Your urine does appear to be infected, for which you are being prescribed a different antibiotic. Please stop the antibiotic that you were on and start the cefpodoxime. You were also given a IV dose of antibiotics in the ED today. You were given a dose of Pepcid AC in the ED today. Please continue taking Pepcid AC twice daily, once 30 minutes prior to breakfast, once 30 minutes prior to dinner. You may take this for the next 4 weeks. It is possible that the Celebrex is contributing to stomach irritation. Please stop Celebrex, ibuprofen, Aleve, since these are known to irritate the lining of the stomach. Instead, you may take 1000 mg of Tylenol every 8 hours for pain. You may take MiraLax nightly for constipation. It is important to increase your fiber and fluid intake. You may also add on Dulcolax. Please follow-up with your PCP for further evaluation, referral to GI. Return to the ED if you note worsening symptoms. Prescriptions: New cefpodoxime 200 mg tablet 200 mg PO Q12H 10 Days Qty: 20 0RF Rx Instructions: must administer with a meal/food No Action ferrous sulfate 325 mg (65 mg iron) tablet 325 mg PO DAILY Qty: 90 0RF Rx Instructions: If experiencing side effects may decrease to 1 tab every Friday, Friday, Friday. amlodipine 10 mg tablet 10 mg PO DAILY Qty: 90 3RF lisinopril 40 mg tablet 40 mg PO DAILY Qty: 90 3RF sertraline 25 mg tablet 25 mg PO DAILY Qty: 90 3RF aspirin 81 mg Tablet 81 mg PO DAILY Referrals: Frankie Chapa ARNP [Primary Care Provider] - Stand Alone Forms: Patient Portal/API/Survey ED Sign-out <Brandi Gonzalez DO - Last Filed: 07/30/24 07:46> Cosign ED Attending Issac Attestation: I was available for consultation.
[2024-07-26] MEDS: cefTRIAXone 1,000 MG in SODIUM CHLORIDE 0.9% 100 ML 200 MG IV (12:42)
[2024-07-26] MEDS: FAMOTIDINE 20 MG/2 ML VIAL 40 MG IV (12:42)
[2024-07-26 13:00] VITALS: BP 129/59; PULSE 64; O2SAT 97
[2024-07-26 14:17] VITALS: BP 131/60; PULSE 66; RESP 20; TEMP 37; O2SAT 98
== END 2024-07-26 14:17 | disposition home or self-care (01) ==
PROVIDERS: Emergency Medicine; Emergency Provider Student in an Organized Health Care Education/Training Program; PCP Registered Nurse Diabetes Educator
DX: R10.84 Generalized abdominal pain (principal)
CPT/HCPCS: 36415; 76705; 80053; 81003; 81015; 83690; 85025; 87086; 93005; 93010; 96365; 96375; 99284; J0696

== ENCOUNTER → 2024-07-28 13:33 | Outpatient (CLI) | payer MEDICARE, OTHER, SELFPAY ==
[2024-07-28 14:47] LABS: Hematocrit 35.4 % (36-46); Hemoglobin 11.7 g/dL (12.0-16.0); Mean Corpuscular HGB Conc 32.9 % (30-36); Mean Corpuscular Hemoglobin 27.4 PG (26-34); Mean Corpuscular Volume 83.1 fL (80-100); Platelet Count 189 X10^3/uL (150-400); Red Blood Cell Count 4.26 X10^6/uL (4.0-5.2); White Blood Cell Count 4.8 X10^3/uL (4.5-11.0)
[2024-07-28 15:39] LABS: HEMOLYSIS < 15 (0-50); Iron 37 ug/dL (37-170)
[2024-07-28 15:49] LABS: Percent Iron Saturation 11 % (15-50); Total Iron Binding Capacity 341 ug/dL (265-497); Transferrin 272 mg/dL (206-381)
[2024-07-28 16:16] LABS: Ferritin 10 ng/mL (11-264)
== END ==
PROVIDERS: PCP Registered Nurse Diabetes Educator; Referring Provider Physician Assistant; Visit Provider Physician Assistant
DX: D58.9 Hereditary hemolytic anemia, unspecified (principal); R10.9 Unspecified abdominal pain; G89.29 Other chronic pain; K58.9 Irritable bowel syndrome, unspecified; D50.9 Iron deficiency anemia, unspecified
CPT/HCPCS: 36415; 82728; 83013; 83540; 83550; 85027

== ENCOUNTER → 2024-12-07 10:09 | Outpatient (CLI) | payer MEDICARE, OTHER, SELFPAY ==
[2024-12-07 10:48] LABS: Add Manual Diff / Slide Review NO; Hematocrit 35.4 % (36-46); Hemoglobin 11.9 g/dL (12.0-16.0); Lymphocytes Absolute Auto 1200 /uL (1100-4500); Mean Corpuscular HGB Conc 33.5 % (30-36); Mean Corpuscular Hemoglobin 28.9 PG (26-34); Mean Corpuscular Volume 86.1 fL (80-100); Platelet Count 167 X10^3/uL (150-400)
[2024-12-07 11:04] LABS: Hemoglobin A1C% w Est Avg Glu 5.3 % (4.0-6.0)
[2024-12-07 11:27] LABS: Albumin 4.6 g/dL (3.5-5.0); Blood Urea Nitrogen 19 mg/dL (7-17); Calcium 9.4 mg/dL (8.4-10.2); Carbon Dioxide 26 mmol/L (22-32); Chloride 103 mmol/L (98-107); Estimated Glomerular Filt Rate > 60 mL/min (>60); Glucose 93 mg/dL (70-99); HEMOLYSIS < 15 (0-50); Potassium 4.8 mmol/L (3.4-5.1); Sodium 138 mmol/L (137-145)
[2024-12-07 11:34] LABS: Prealbumin 27.9 mg/dL (17.6-36.0)
[2024-12-07 11:42] LABS: Vitamin D 25 Hydroxy (D3) 32.9 ng/mL (30.0-100.0)
[2024-12-07 12:00] LABS: Ferritin 19 ng/mL (11-264)
== END ==
PROVIDERS: PCP Registered Nurse Diabetes Educator; Referring Provider Orthopaedic Surgery Adult Reconstructive Orthopaedic Surgery; Visit Provider Orthopaedic Surgery Adult Reconstructive Orthopaedic Surgery
DX: Z01.818 Encounter for other preprocedural examination (principal); D50.9 Iron deficiency anemia, unspecified; R73.09 Other abnormal glucose; E55.9 Vitamin D deficiency, unspecified; M16.0 Bilateral primary osteoarthritis of hip; G47.33 Obstructive sleep apnea (adult) (pediatric); M25.551 Pain in right hip
CPT/HCPCS: 36415; 73502; 80048; 82040; 82306; 82728; 83036; 84134; 85025; 99214

== ENCOUNTER 2025-01-31 11:32 | Day surgery (SDC) | payer MEDICARE, OTHER, SELFPAY ==
[2025-01-25 09:48] VITALS: BMI 31.5
[2025-01-31] VITALS (10 sets, daily range): BP systolic 129–147; BP diastolic 54–87; PULSE 72–96; RESP 12–18; TEMP 35.9–37.1; O2SAT 92–98; BMI 30.2
--- NOTE | 2025-01-31 | DI.RAD.S_ITS ---
PROCEDURE: XR HIP W PEL IF DONE RT 2V
--- NOTE | 2025-01-31 07:37 | DI.RAD.S_ITS ---
PROCEDURE: XR HIP W PEL IF DONE RT 2V
[2025-01-31] MEDS: LACTATED RINGERS 1,000 ML 42 ML IV ×2 (12:24→15:20)
[2025-01-31] MEDS: MELOXICAM 7.5 MG TABLET 15 MG PO (12:25)
--- NOTE | 2025-01-31 12:25 | P.OP.PRE_ITS ---
Pre-operative Note
--- NOTE | 2025-01-31 12:25 | PM.PREOP ---
Pre-operative Note Interval Note History & Physical reviewed/Exam performed by Physician: Yes Changes to H&P: No
[2025-01-31] MEDS: ACETAMINOPHEN 325 MG TABLET 975 MG PO (12:26)
[2025-01-31] MEDS: TRANEXAMIC ACID 1,000 MG VIAL 1000 MG INJ ×2 (13:52→15:00)
--- NOTE | 2025-01-31 14:07 | SUR.OPER ---
Supine on padded [place] table with bilateral legs secured in padded positioning boots and suspended in positioning spars, operative leg in traction per surgeon. Head on one pillow. Bilateral Arms on secured on padded armboard <90 degrees abduction. Padded perineal post in place per surgeon. Surgeon in room to approve final position prior to draping. All pressure points padded and covered.
[2025-01-31] MEDS: KETOROLAC 30 MG/ML VIAL 15 MG INJ (14:12)
--- NOTE | 2025-01-31 15:02 | P.OP_ITS ---
Operative Date/Time/Diagnoses
--- NOTE | 2025-01-31 15:02 | PM.OP.1 ---
Operative Date/Time/Diagnoses Date of procedure: 01/31/25 Time of procedure: 14:00 Pre-op diagnosis: Right hip osteoarthritis Post-op diagnosis: same Procedure & Clinicians Procedure: Right total hip arthroplasty Same procedure(s) as scheduled: Yes Surgeon: Balwinder Peralta Assisted?: Yes Wire Straightener: Stacie Lew Anesthesia Type: General and Local Operative Notes Findings: Severe arthritis Closure Type: primary Applied: implant(s) Estimated Blood Loss (mL): 200 Procedure in detail: 1. Right Uncemented Direct Anterior Lang Total Hip Arthroplasty (87716) 2. Computer-Assisted Musculoskeletal Surgical Navigational Orthopedic Procedure Using Fluoroscopic Image Guidance (0054T) Implants: G7 PPS size 54 cup? Z1 femoral stem size 5 high offset? 36 mm +3.5 ceramic femoral head? Procedure Summary: This 69-year-old female patient had high bone quality preoperatively with a T-score of-0.3 on her DEXA scan on the operative hip. I therefore utilized uncemented fixation with a triple taper collared stem. Soft tissue laxity allowed femoral exposure for broaching without the need for accessory releases of the conjoined tendon. I initially trialed with a coxa vara neck and a +0 head but this was dramatically unstable so I upsized to a high offset and a +3.5 head. This resolved the instability and was appropriate on all parameters on the ortho grid overlay so those definitive implants were utilized. After placement of definitive implants I could not manually dislocate the hip with maximum external rotation Procedure in Detail: This patient was seen preoperatively and evaluated for hip pain which was refractory to numerous nonoperative treatment modalities. Their hip pain correlated with radiographic changes demonstrating significant degeneration in the hip joint. The risks and benefits of continued nonoperative management versus operative management were discussed at length and all of the patient?s questions were answered. Additional educational materials providing further details beyond our discussion in clinic were provided via a publicly available patient education video which included the incidence of medical complications associated with total hip arthroplasty, reasons for revision following total hip arthroplasty, and patient satisfaction rates following total hip arthroplasty. With this understanding of the risks inherent to the procedure, the patient elected to move forward with operative management. Following preoperative optimization, the patient was scheduled for surgery. The patient was met in the preoperative holding area the day of the procedure and all questions were answered. The patient?s nares were swabbed in order to decolonize them from MRSA. Informed consent was signed and the right limb was marked with indelible ink.? The patient was brought back to the operating room where anesthesia was induced. The patient was transferred to the [place] table and all bony prominences were padded. The operative site was prepped and draped in the usual sterile fashion. Prior to incision, tranexamic acid and cefazolin were administered. Operative templating images were displayed demonstrating the anticipated implant sizes and correct operative extremity. A timeout procedure was performed verifying the patient?s identity, medical comorbidities, allergies, relevant medications, anesthesia type and the surgical plan. All present were in agreement. The assistance of a physician tax accounting assistant was required for positioning, room setup, soft tissue retraction and wound closure. Without this assistance, the procedure would have been significantly more challenging and time consuming.?? A direct anterior approach to the hip was utilized. This was performed with a longitudinal incision through a Heuter interval. The incision was planned 2 cm distal and 2 cm lateral to the ASIS extending towards the lateral patella, in line with the muscle body of the TFL. Following incision, the subcutaneous tissue was dissected while taking care to avoid injury to the lateral femoral cutaneous nerve. The fascia overlying the TFL was identified by dissecting off the overlying fat and identifying perforating vessels to the TFL. The TFL fascia was incised and dissected away from the medial border of the TFL. A retractor was placed over the superior femoral neck between the abductors and the hip capsule and used to reflect the TFL laterally. A Jewell self-retainer was then placed in the distal aspect of the wound between the TFL and the rectus femoris. This was tensioned to open up the direct anterior interval and the lateral circumflex vessels were identified and coagulated using electrocautery. The floor of the TFL fascia was incised, exposing the pericapsular fat overlying the hip capsule. A second cobra retractor was placed on the inferior femoral neck. A retractor was placed on the anterior wall of the acetabulum and used to tension the reflected head of rectus femoris, which was then released in order to limit soft tissue tension. A capsulotomy was made in the midline of the anterior hip capsule in line with the femoral neck ending at the vastus tubercle. The anterior retractor was removed as soon as the capsulotomy was completed in order to limit the amount of time that a soft tissue retractor remained on the anterior wall and limit tension on the femoral nerve. Tag stitches were placed in the superior and inferior leaflets of the hip capsule. An Khang soft tissue retractor was introduced over the tag stitches and tensioned in the interval between the rectus femoris and the TFL in order to retract and protect those muscles. The cobra retractors were replaced intracapsularly, with one over the superior neck in the pocket created by the base of the greater trochanter and the other on the femoral head. The capsulotomy was extended laterally to the base of the greater trochanter and medially to the lesser trochanter. This required externally rotating the hip. Once the lesser trochanter had been identified, a neck cut was planned according to measurements from preoperative templating. A ruler was cut at the length measured between the superior aspect of the lesser trochanter and the collar of the prosthesis. This line was extended towards the inferior aspect of the lateral cobra retractor to plan a cut which would leave minimal residual femoral neck laterally. The neck was cut at 60 degrees of external rotation along that line. A second cut was performed to remove a large napkin ring and facilitate head extraction. The napkin ring cut and femoral head were removed.?? A broad anterior wall retractor was placed between the labrum and the anterior capsule so that the anterior capsule would prevent capturing and pinching the femoral nerve anteriorly. An additional retractor was placed on the posterior wall. External rotation and traction were applied through the [place] table so that the cut surface of the femoral neck would not restrict access to the acetabulum. The labrum was excised sharply and the pulvinar was excised with electrocautery to limit bleeding from branches of the obturator artery. Acetabular reamers were selected based on preoperative templating and measurements of the excised femoral head. These were introduced into the acetabulum. Fluoroscopy was utilized to replicate a standing AP pelvis radiograph by centering over the pelvis, rotating until there was appropriate symmetry between the obturator foramen, and introducing caudal tilt to match the position of the pubic symphysis relative to the sacrococcygeal junction according to the patient?s anatomy. Once satisfied with the reaming depth corresponding to the preoperative template and the pinch fit between the columns, an appropriate sized acetabular cup was selected which would provide 1 mm of press-fit. This cup was introduced and manipulated until appropriate abduction and anteversion angles were obtained with careful attention to appropriate abduction and anteversion angles as evaluated by the position of the cup relative to the anterior and posterior buchanan of the acetabulum and the AP fluoroscopy which recreated the patient?s standing radiograph. The cup was impacted into place. Peripheral osteophytes were removed. The acetabular liner was then placed with care to ensure locking of the locking mechanism. Attention was then turned to the femur. All retractors were removed, traction was released, a retractor was placed in the interval between the hip capsule and the gluteus minimus. The lateral capsule was released using electrocautery. Traction was released and a [place] hook was placed posteriorly around the proximal femur at the level of the vastus ridge. The table height was lowered in order to restrict the tension on the anterior structures during hip hyperextension to limit the risk of femoral nerve palsy. With traction off and the hip at 90 degrees of external rotation, the hip was hyperextended and adducted while manually elevating the femur away from the acetabulum with the [place] hook to avoid hooking the greater trochanter on the pelvis. An asymmetric retractor was placed over the calcar and a broad double-pronged retractor was placed over the greater trochanter. The tag stitch capturing the lateral leaflet of the capsule was moved to the medial side, leaving the conjoined and piriformis tendons isolated in the face of the greater trochanter. The hip was externally rotated and elevated. A release of the conjoined tendon was not necessary in order to obtain adequate exposure for broaching. The canal was opened with an opening broach and a rasp was used to remove cancellous bone. A rongeur was used to remove the residual lateral bone at the base of the greater trochanter to avoid placing the stem in varus. The femur was then broached to the appropriate sized stem yielding good rotational fit and fill of the canal as well as appropriate version of the stem trial. Neck and head trials were placed, all retractors were removed and the hip was returned to neutral abduction and extension. I then reduced the hip and manually trialed it before changing surgical gloves. Initial trialing was performed with a size 4 broach, a coxa vara offset neck and a +0 head. I initially manually externally rotated the hip and found that it immediately dislocated so I switched to a high offset and a +3.5 head. This resolved the instability. I then locked the hip in 45 degrees of external rotation and dropped it to the floor with traction off which demonstrated no instability. An ortho grid overlay image demonstrated appropriate leg length and offset comparing the operative site in the nonoperative side. AP and lateral hip fluoroscopic images were obtained to evaluate the broach size which demonstrated good canal fill. The hip was dislocated and I returned to the broaching position. Based on my evaluation during initial trialing I planned to place those who complained of implants. Upon returning to the broach in position however I found that the size 4 broach was rotationally unstable. I removed lateral bone in order to allow the size 4 to sink further and then upsized to a size 5 broach which was able to sink down to the same point where the size 4 broach had sat. This was rotationally stable. The definitive stem was placed and the trunnion was cleaned and dried. I placed a ceramic head onto the trunnion and impacted it into place on the [place] taper.?? All retractors were removed and the hip was reduced. A dilute mixture of betadine and peroxide was used to bathe the soft tissues during final fluoroscopic assessment. Appropriate component positioning was confirmed on an AP pelvis radiograph with the operative and nonoperative legs in 40 degrees of external rotation, evaluating leg length and offset. Appropriate stem fill was evaluated on AP and lateral hip radiographs. No previously unrecognized fractures were identified on these radiographs. There was no hip instability with maximum (120?) external rotation as well as a 45 degree drop test. The hip was copiously irrigated with pulse lavage. The capsule was closed with absorbable interrupted suture. The TFL fascia was closed with barbed suture while carefully protecting the lateral femoral cutaneous nerve from entrapment. A mixture of Ropivacaine, Epinephrine and Toradol was infiltrated throughout the soft tissues. The skin was closed with 2-0 and 3-0 sutures. Surgical glue was applied and a soft dressing was placed.??The sponge, instrument and needle counts were reported as being correct at the end of the case.??No obvious complications occurred. The patient was transferred from the [place] table back to a stretcher. The patient emerged from anesthesia without difficulty and was taken to the PACU in a stable condition.? Plan for aftercare: No hip precautions Weightbearing as tolerated Aspirin 81 twice per day for DVT prophylaxis Anticipate discharge home tomorrow. Patient would like to go home today but I do not anticipate that we will be able to get her a physical therapy session after she wakes up from anesthesia in the PACU area. Multimodal pain regimen with no IV opioids ordered Follow up at [facility] in 2 weeks Complications: none Post-operative Condition: stable Disposition: observation
--- NOTE | 2025-01-31 17:32 | PT-IP ANOTE ---
Attempted to see pt for initial evaluation and treatment. Pt is unable to keep her eyes open or attend to me. Will reschedule evalution for tomorrow morning.
[2025-01-31] MEDS: IBUPROFEN 600 MG TABLET PO (18:03)
[2025-01-31] MEDS: LACTATED RINGERS 1,000 ML 100 ML IV ×2 (18:05→21:12)
[2025-01-31] MEDS: DOCUSATE 100 MG CAPSULE PO (21:13)
[2025-01-31] MEDS: ASPIRIN EC 81 MG TABLET PO (21:13)
[2025-01-31] MEDS: SERTRALINE 50 MG TABLET 25 MG PO (21:13)
[2025-02-01 04:20] VITALS: BP 134/69; PULSE 74; RESP 18; TEMP 36.7; O2SAT 98
[2025-02-01] MEDS: IBUPROFEN 600 MG TABLET PO (06:13)
--- NOTE | 2025-02-01 07:17 | P.DS_ITS ---
History of Present Illness
--- NOTE | 2025-02-01 07:17 | PM.DS.IH.1 ---
History of Present Illness History of Present Illness Date Patient Seen: 02/01/25 Chief complaint: R THIERRY *OPB* Narrative: 69 year old female with a past medical history of obstructive sleep apnea presented to [facility] on 01/31/25 for planned direct anterior right total hip arthroplasty by Dr. Peralta. ?This elective procedure was indicated by chronic right hip arthritis causing groin and lateral hip pain limiting her ability to extend the right hip fully. ?On the date of surgery there were no changes of the medical history, medications or allergies. ?Consent had been obtained and the patient was in agreement to proceed with planned surgery. This morning the patient reports she is doing very well with mild pain after surgery. Pain has been controlled with oral ibuprofen without use of tylenol or oxycodone. The patient has not worked with physical therapy. The patient denies chest pain, dyspnea, nausea, emesis, fever and chills. She is making urine spontaneously. The patient has all of their post operative medications at home and feels ready to discharge home today. Last night she had mild nausea when she moved from a [id number] position to use the bathroom. She received oral Zofran. She did not eaten dinner but is tolerating oral crackers this morning without nausea. No emesis today. She shares she is making urine spontaneously. She would like to return home today. Discharge Providers Provider Discharge Date: 02/01/25 Primary care physician: KUN Lane Consults: 01/31/25 07:36 Consult to Anesthesiology Routine Comment: Consulting Provider: Anesthesiologist Reason for consultation: Regional block for post-operative pain control 01/31/25 14:59 Consult to Physical Therapy Evaluate & Treat Comment: Physician Instructions: Evaluate and Treat 01/31/25 17:09 Consult to Discharge Planning Routine Comment: Consult to Occupational Therapy Evaluate & Treat Comment: Physician Instructions: Evaluate and treat Consult to Physical Therapy Evaluate & Treat Comment: Physician Instructions: Evaluate and Treat Discharge provider: NATALIE Franco Dr Summary Hospital Course Hospital Course: On 01/31/25 the patient was brought to the operating room for planned direct anterior right total hip arthroplasty by Dr Peralta.? There were no known intraoperative complications.? The patient was transferred to the postoperative recovery area and monitored appropriately.? Later the patient was transferred to the acute care unit [facility] for monitoring overnight and physical therapy.? There were no acute events overnight.? On postoperative day 1, the patient's vital signs were stable and she was making urine spontaneously.? The patient denied chest pain, dyspnea, nausea and emesis on postoperative day 1.? The patient was awaiting physical therapy evaluation during orthopedic rounds.? Pain was well-controlled on oral analgesics and the patient was in agreement with preoperative plan to discharge home on postoperative day 1. Post operative nausea had resolved. Exam Vital Signs (past 8 hours): - 01/31/25 23:30 02/01/25 04:20 Temperature 97.8 F 98.0 F Pulse Rate 84 74 Respiratory Rate 18 18 Blood Pressure 139/69 134/69 Pulse Oximetry 95 98 Oxygen Flow Rate 0 0 Oxygen Delivery Method Room Air,CPAP Oxygen Flow Rate 0 Narrative Exam Narrative: Well-developed, well-nourished, 69-year-old female, no acute distress. Aquacel dressing dry and intact to right hip without erythema, drainage or ecchymosis. Femoral and sciatic nerve function intact. Knee extension, ankle dorsiflexion, ankle plantar flexion and EHL function intact. Sensation intact to light touch about right foot. Palpable dorsalis pedis pulse. Right calf non tender to squeeze. [facility] Medical History (Updated 01/25/25 @ 10:10 by Aysha Trejo RN) Depression Hx of ectopic No history of colonoscopy Degenerative disc disease, lumbar Bilateral primary osteoarthritis of hip Dyslipidemia Impaired fasting blood sugar Prediabetes Obstructive sleep apnea Anxiety Essential hypertension Surgical History (Updated 01/25/25 @ 10:10 by Aysha Trejo RN) History of History of right salpingo-oophorectomy Social History household members: spouse Smoking Status: Never smoker alcohol intake: never Discharge Assessment & Plan Assessment and Plan Plan of Treatment: 69 year old female with a past medical history of obstructive sleep apnea presented to [facility] on 01/31/25 for planned direct anterior right total hip arthroplasty by Dr. Peralta. The patient is recovering well with appropriate pain control on oral analgesics and stable vital signs. The patient is comfortable with planned discharge home today on post operative day one after physical therapy. Plan:? Weightbearing as tolerated to right lower extremity with front wheeled walker? No hip precautions? DVT prophylaxis with 81 mg of aspirin twice daily for 6 weeks? Continue multimodal analgesia with Tylenol, meloxicam and tramadol? Bowel regimen as needed? Physical therapy evaluation and treatment today for planned discharge home Follow up with orthopedics 2 weeks post operatively? All post operative medications ordered at pre operative visit? Ice to surgical site as needed? All patient questions were answered and they verbalized agreement with the above plan. Call [facility] with any questions or concerns. Discharge Plan Discharge Plan Patient Disposition: Home Provider Discharge Comment: SURGICAL PROCEDURE: Right Total Hip Arthroplasty SURGEON: Dr. Peralta at [facility] DATE: 01/31/25 ACTIVITY INSTRUCTIONS o You are weight bearing as tolerated to the right lower extremity with a front wheeled walker at all times. We encourage active movement of the toes and ankle every hour while awake to prevent stiffness. o You have no hip precautions o Limit your steps to no more than 1000 steps per day for the first week after surgery to limit swelling. o Do not drive while taking narcotic medications and recovering from your surgery. DRESSING CARE o You have an Aquacell dressing on top of your incision. This is a waterproof dressing and so you may shower with the dressing so long as the dressing remains clean and dry to the surgical site. Leave the dressing in place until your follow up in the orthopedic clinic. If the dressing becomes saturated or is disrupted call our office for further guidance. POST-OPERATIVE INSTRUCTIONS o If you notice fever, chills, night sweats, redness, excessive drainage or bleeding, a sharp increase in pain that persists after taking pain medication, pain in your calf muscles, chest pain or trouble breathing please unwrap the dressing and investigate. Then call the office with findings for further guidance. If it is after regular clinic hours, please seek care in the emergency department. o In the rare case of any severe chest pain and trouble breathing, seek immediate care, do not delay for a call to the clinic. o Use ice to the affected extremity for 15-30 minutes increments as much as possible. Use your ice machine as discussed in your pre-operative visit. o Keep extremity elevated to the level of the heart to reduce swelling. You can use ice on top of the dressing to reduce pain and swelling of the extremity. o You should consume a low sodium diet after surgery to limit swelling. You can gradually resume your normal diet if you have no nausea or vomiting o Physical therapy should begin about 7-10 days after surgery. Your first evaluation should already be scheduled. Call our office if you cannot schedule your therapy in the expected time frame. o Your follow up is already scheduled for 2 weeks after your surgery at the Orthopedic clinic. o You should have no dental procedures for 6 months following your total joint replacement. o Please refer to Dr. Peralta?s educational videos on YouTube for a reference on your post operative care. Hip Replacement [email or web address] o Call [facility] at [phone] with any questions or concerns. MEDICATIONS o Please refer to the ?Orthopedic Medication Instructions? sheet provided at your pre-operative visit. Written instructions are provided below as a reminder. ? Take two pills of 500 mg Tylenol (acetaminophen) every 8 hours regardless of pain in a scheduled manner. Do not exceed 3000 mg of Tylenol (from ALL sources, including over the counter combination products) in a 24-hour period due to risk of liver injury. ? Take one pill of 50 mg tramadol by mouth every 6 hours as needed for break through pain after taking your regular Tylenol and anti-inflammatory. ? Tramadol is an opioid, which means it is similar to morphine, heroin or fentanyl. Our goal is for you to take as little of this as possible because the side effects from it can be very severe. If you are able to get through your recovery process taking 10 pills or less please share your story with other patients by logging onto [email or web address] and sharing what strategies you used to avoid these dangerous medications. You can also read other patients? stories on that website to get strategies that go above and beyond what we have discussed to help you manage this pain while avoiding opioids. ? Take one pill of oral meloxicam daily. This is NSAID (anti-inflammatory) medication to reduce swelling and pain. ? Take 200 mg of Colace by mouth every 12 hours for constipation. Narcotic medications such as oxycodone and tramadol as well as anesthesia may increase your risk of constipation after surgery. ? Take 4 mg of Zofran by mouth every 6 hours as needed for uncontrolled nausea or vomiting. If you have persistent nausea and vomiting call our office or seek care in the emergency department. ? Take one pill of 81 mg of aspirin two times daily 12 hours apart for 6 weeks for blood clot prevention. Take this medication regardless of pain. ? Take a proton pump inhibitor such as Pantoprazole if you have a history of acid reflux or are noticing stomach irritation. NSAIDs and aspirin can both cause stomach irritation and that medication can help avoid stomach issues. o If you stopped taking a ?biologic? medication that you normally take for an issue such as rheumatoid arthritis or psoriasis prior to surgery, do not restart it until we have seen you back in clinic and confirmed that your wound is healed. o Resume all of your normal home medications tomorrow morning unless specified otherwise by your surgeon. Discharge orders & Medications Discharge Orders: Discharge (Order); Ordered 01/31/25 Ordered By: Rosamaria Fleming Prescriptions: Continued cholecalciferol (vitamin D3) 50 mcg (2,000 unit) capsule 100 mcg PO DAILY Qty: 60 0RF Rx Instructions: take 2 caps by mouth daily amlodipine 10 mg tablet 10 mg PO DAILY Qty: 90 3RF lisinopril 40 mg tablet 40 mg PO DAILY Qty: 90 3RF sertraline 25 mg tablet 25 mg PO DAILY Qty: 90 3RF pantoprazole 40 mg tablet,delayed release (DR/EC) 40 mg PO DAILY aspirin 81 mg capsule 81 mg PO DAILY ferrous fumarate 89 mg (29 mg iron) tablet 89 mg PO DAILY acetaminophen [Tylenol Extra Strength] 500 mg tablet 1,000 mg PO Q8H PRN (Reason: post-op pain) Qty: 60 0RF meloxicam 15 mg tablet 15 mg PO DAILY PRN (Reason: pain) Qty: 30 1RF tramadol 50 mg tablet 50 mg PO Q6H PRN (Reason: pain) Qty: 25 0RF Follow up/Referrals: Frankie Chapa ARNP [Primary Care Provider, Medical] Balwinder Peralta MD [Physician, Orthopedic Surgery] Diet/Activity/Treatments Diet: Diet as Tolerated and Low-sodium Visit Report/Discharge Packet Instructions: DI for Hip Replacement, DI for Prescription Opioid Use Stand Alone Forms: Patient Portal/API Print Language: Czech Discharge Data Primary Care Provider: Frankie Chapa Attending Provider: Balwinder Peralta Quality VTE Deep Vein Thrombosis/Pulmonary Embolism Present on Admission: No IH PROFEE Charge Codes Discharge inpatient/observation: 45058
[2025-02-01 08:00] VITALS: BP 141/58; PULSE 76; RESP 17; TEMP 36.7; O2SAT 96
--- NOTE | 2025-02-01 08:54 | PT.IIE ---
Current Diagnoses Unilateral primary osteoarthritis, right hip (01/31/25) Surgery Performed Operation Date: 01/31/25 14:45 Actual Procedures p Total Hip Arthroplasty/Anterior Approach(Right) - Balwinder Peralta MD Surgical History (Last Updated 01/25/25 @ 10:10 by Aysha Trejo, RN) History of History of right salpingo-oophorectomy Medical History (Last Updated 01/25/25 @ 10:10 by Aysha Trejo, RN) Anxiety Bilateral primary osteoarthritis of hip Degenerative disc disease, lumbar Depression Dyslipidemia Essential hypertension Hx of ectopic Impaired fasting blood sugar No history of colonoscopy Obstructive sleep apnea Prediabetes Physical Therapy Inpatient Evaluation/Re-Eval M1 PT IP Prior Functional Status Start: 02/01/25 08:48 Freq: NEEDED Status: Active Protocol: Document 02/01/25 08:29 MB (Rec: 02/01/25 08:54 MB Desktop) Medical Review Prior Functional Status Medical History Yes Reviewed Diet/Fluid Regular Consistency Communication WNLs Mobility and Gait Mod I with cane or rollator Activities of Daily Mod I Living and IADL's Social History Household Members spouse Living Arrangements House Number of Floors ( One Floor Floors) Number of Stairs To Ramped entrance Enter/Railing? Home Environment Standard Height Toilet,Walk in Shower Home Equipment Four Wheel Walker,Straight Cane,Grab Bars In Shower Employment Status Retired M2 PT-IP Current Condition Start: 02/01/25 08:48 Freq: NEEDED Status: Active Protocol: Document 02/01/25 08:29 MB (Rec: 02/01/25 08:54 MB Desktop) Physical Therapy Current Condition Current Condition Evaluation Date 02/01/25 Treatment Diagnosis R anterior THIERRY M3 PT-IP Subjective Start: 02/01/25 08:48 Freq: NEEDED Status: Active Protocol: Document 02/01/25 08:29 MB (Rec: 02/01/25 08:54 MB Desktop) Subjective Physical Therapy Visit Type Type Initial Evaluation Visit Start Time 08:29 Visit Stop Time 08:45 Number of TRACTOR OPERATOR Visits 0 Physical Therapy Visit Comments Patient Comments Pt is agreeable to PT evaluation Therapy Pain Assessment Pain When Pain Assessed At Rest Pain Present Pain Present Pain Reported Location Right Hip Intensity 1 Scale Used Numeric (0 - 10) M4 PT-IP Mobility and Gait Start: 02/01/25 08:48 Freq: NEEDED Status: Active Protocol: Document 02/01/25 08:29 MB (Rec: 02/01/25 08:54 MB Desktop) PT-Bed Mobility Assessment Rolling Type of Rolling Roll to Right Level of Assist Independent Supine to Sit Supine to Sit Independent Scooting Scooting to Edge of Independent Bed PT-Transfer Assessment Sit to and From Stand Sit to and from Independent Stand Equipment Transfer Assistive Gait Belt,4 Wheeled Walker Device Transfers Transfer Destination Chair,Toilet Transfer Technique Ambulation Transfer Ability Level of Assist Independent,Standby Assistance Comments Mobility Comments Step-to and antalgic pattern post-op Gait Assessment Gait Gait Assistance Independent,Standby Assistance Required: Distance (Feet) 20 Able to Maintain Yes Weight Bearing Status During Gait Assistive Devices Assistive Device Gait Belt,4 Wheeled Walker Gait Deviations General Gait Pattern Antalgic,Step-to Gait Factors Limiting Gait Function Factors Limiting Decreased Strength,Limited Range of Motion,Pain,Poor Gait Function Balance,Poor Safety Awareness Comments Gait Comments 20'x2 50' with initial SBA progressed to mod I with rollator PT-Balance Assessment Sitting Balance and Reactions Static Sitting Good Balance Ability Dynamic Sitting Good Balance Ability Standing Balance and Reactions Static Standing Good Balance Ability Dynamic Standing Good Balance Ability Device Used Rollator M5 PT-IP Objective Assessments Start: 02/01/25 08:48 Freq: NEEDED Status: Active Protocol: Document 02/01/25 08:29 MB (Rec: 02/01/25 08:54 MB Desktop) Orientation Orientation/Cognition Level of Alertness Alert Language Function No Deficits Noted Ability Safety Awareness Understands Safety Issues Memory Description No Deficits Noted Gross Range of Motion Upper Extremity ROM Assessment Within Functional Limits Lower Extremity ROM Assessment Right Impaired Impairments R hip limitations post-op Strength Upper Extremity Strength Assessment Within Functional Limits Lower Extremity Strength Assessment Right Impaired Comments Strength Comments R hip limitations post-op Coordination Assessment Gross Coordination Gross Coordination Impaired Sensation Assessment Comments Sensation Comments Denies paresthesias Muscle Tone Muscle Tone WNL Yes M6 PT-IP Treatment Start: 02/01/25 08:48 Freq: NEEDED Status: Active Protocol: Document 02/01/25 08:29 MB (Rec: 02/01/25 08:54 MB Desktop) Physical Therapy Treatment Exercises Exercises Ankle Pumps,Gluteal Sets,Quad Sets,Heel Slides Education Education Provided Post-Op Packet M7 PT-IP Assessment and Plan Start: 02/01/25 08:48 Freq: NEEDED Status: Active Protocol: Document 02/01/25 08:29 MB (Rec: 02/01/25 08:54 MB Desktop) PT Summary Assessment and Plan Potential Rehabilitation Excellent Potential Status of Condition Stable at Evaluation Summary Impairments Pain,ROM,Strength,Balance,Coordination Progress Towards Safe For Discharge Goals Assessment Summary Pt is a 69 y/o female s/p right anterior THIERRY last date. She moves well on evaluation and is ready to d/c with her . Pt does not yet have OPPT set-up and they will stop by [facility] in [place] on the way home today. Will d /c acute PT. Frequency of Treatment Frequency Of Discharge Treatment Weight Bearing Status Weight Bearing Weight Bear as Tolerated Status Recommendations To Nursing Amount of Assist Standby Assistance Needed Discharge Recommendations PT Discharge Home with Assistance,Outpatient PT Recommendations Transportation Needs Private Vehicle at Discharge
--- NOTE | 2025-02-01 08:55 | OT.IP.EVAL ---
Current Diagnoses Unilateral primary osteoarthritis, right hip (01/31/25) Surgery Performed Operation Date: 01/31/25 14:45 Actual Procedures p Total Hip Arthroplasty/Anterior Approach(Right) - Balwinder Peralta MD Past Medical History (Last Updated 01/25/25 @ 10:10 by Aysha Trejo, RN) Anxiety Bilateral primary osteoarthritis of hip Degenerative disc disease, lumbar Depression Dyslipidemia Essential hypertension Hx of ectopic Impaired fasting blood sugar No history of colonoscopy Obstructive sleep apnea Prediabetes Surgical History (Last Updated 01/25/25 @ 10:10 by Aysha Trejo RN) History of History of right salpingo-oophorectomy Occupational Therapy Inpatient Evaluation/Re-Eval M1 OT IP Prior Functional Status Start: 02/01/25 08:55 Freq: Status: Active Protocol: Document 02/01/25 08:55 [facility] (Rec: 02/01/25 09:05 [facility] Desktop) Medical Review Prior Functional Status Medical History Yes Reviewed Diet/Fluid Regular Consistency Communication WNLs Mobility and Gait Mod I with cane or rollator Activities of Daily Mod I Living and IADL's Social History Household Members spouse Living Arrangements House Number of Floors ( One Floor Floors) Number of Stairs To Ramped entrance Enter/Railing? Home Environment Standard Height Toilet,Walk in Shower Home Equipment Four Wheel Walker,Straight Cane,Grab Bars In Shower Employment Status Retired M2 OT-IP Current Condition Start: 02/01/25 08:55 Freq: Status: Active Protocol: Document 02/01/25 08:55 [facility] (Rec: 02/01/25 09:05 [facility] Desktop) Occupational Therapy Current Condition Current Condition Evaluation Date 02/01/25 Treatment Diagnosis S/P R THIERRY Diagnosis Onset Date 01/31/25 Weight Bearing Status Weight Bearing Weight Bear as Tolerated Status M3 OT- IP Subjective and Pain Start: 02/01/25 08:55 Freq: Status: Active Protocol: Document 02/01/25 08:55 [facility] (Rec: 02/01/25 09:05 [facility] Desktop) OT- Subjective Occupational Therapy Visit Type Type Initial Evaluation Visit Start Time 08:20 Visit Stop Time 08:55 Occupational Therapy Visit Comments Patient Comments Pt agreed to get up and pt's in the room. Patient/Caregiver TO go home. Goals OT Pain Assessment Pain When Pain Assessed At Rest Pain Present Pain Present Pain Reported Location Right Hip Intensity 1 Scale Used Numeric (0 - 10) M4 OT- IP ADL's Start: 02/01/25 08:55 Freq: Status: Active Protocol: Document 02/01/25 08:55 [facility] (Rec: 02/01/25 09:05 [facility] Desktop) OT [id number]-[id number] General Evaluation Self-Feeding Ability Independent OT ADL-Grooming General Evaluation Grooming Ability Independent OT ADL-Oral Care General Eval Oral Care Ability Independent OT ADL-Dressing General Eval Upper Body Dressing Independent Ability Lower Body Dressing Standby Assistance Ability Comments OT Dressing Comments VC to dress the RLE first and take out last. OT ADL-Toileting General Evaluation Toileting Ability Standby Assistance Comments OT Toileting Suggested use of pads at night and her to be Comments there when getting up. OT ADL-Bathing Comments OT Bathing Comments Pt may benefit from shower chair. Spoke of care of the bandage when showering . M5 OT- IP IADL's Start: 02/01/25 08:55 Freq: Status: Active Protocol: Document 02/01/25 08:55 [facility] (Rec: 02/01/25 09:05 [facility] Desktop) OT-Instrumental Activities of Daily Living Home Safety Awareness Awareness of Need Good Awareness for Assistance at Home Ability to Problem Able to Problem Solve Solve Emergency Situations Meal Preparation Meal Preparation Pt's to assist. 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 Comments M6 OT- IP Functional Cognition Start: 02/01/25 08:55 Freq: Status: Active Protocol: Document 02/01/25 08:55 [facility] (Rec: 02/01/25 09:05 [facility] Desktop) Cognitive Factors Limiting Selfcare Function Cognitive Ability Level of Alertness Alert Patient Orientation Name,Age,Birthday,Month,Date,Year,Day of Week,Place, Situation Attention Span Capable of Focused Attention,Capable of Sustained Ability Attention Ability to Follow Able to Follow Multi-Step Commands Commands Cognitive Comments Cognitive Assessment Pt intact and mainly just needing cues to slow down. Comments OT- Vision and Hearing OT- Hearing Assessment OT- Hearing WFL Assessment OT- Vision Assessment Visual Acuity Glasses All The Time Visual Attentiveness WFL Occular Pursuits WFL M7 OT- IP Mobility and Balance Start: 02/01/25 08:55 Freq: Status: Active Protocol: Document 02/01/25 08:55 [facility] (Rec: 02/01/25 09:05 [facility] Desktop) OT- Bed Mobility Assessment Supine to Sit Supine to Sit Assist Standby Assistance,Bedrails OT-Transfer Assessment Sit to and From Stand Sit to and from Standby Assistance Stand Transfers Transfer Ability Standby Assistance Technique Transfer Destination Bed,Chair Transfer Technique Stand Step Pivot Devices Transfer Assistive Gait Belt,Front Wheeled Walker Devices Comments Mobility Comments Increased time and use of momentum to get to the edge of the bed. SBA to stand and walk in the room with 4ww. OT- Balance Assessment Sitting Balance and Reactions Static Sitting Normal Balance Ability Dynamic Sitting Normal Balance Ability Standing Balance and Reactions Static Standing Good Balance Ability Dynamic Standing Good Balance Ability M8 OT- IP Objective Assessments Start: 02/01/25 08:55 Freq: Status: Active Protocol: Document 02/01/25 08:55 [facility] (Rec: 02/01/25 09:05 [facility] Desktop) OT Gross Range of Motion Upper Extremity Range of Motion ROM Impairments WFL for dressing needs. OT Strength Comments Strength Comments WFL for transfer needs. M9 OT- IP Assessment and Plan Start: 02/01/25 08:55 Freq: Status: Active Protocol: Document 02/01/25 08:55 [facility] (Rec: 02/01/25 09:05 [facility] Desktop) OT Summary Assessment and Plan Potential Rehabilitation Excellent Potential Analytic Complexity Low at Evaluation Summary OT Impairments Pain,Balance,Functional Mobility,Bathing,Shower Transfers Progress Towards Progressing Toward Goals Goals Assessment Summary Pt low complexity and main barriers are pain and needing vc to slow down. Pt has a very supportive to assist with her needs. Pt is yet to schedule outpt PT appointment. Pt to go home with asisst when medically stable. Goals Dressing Goal Independent Toileting Goal Independent Bathing Goal Independent Toilet Transfer Goal Independent Shower Transfer Goal Independent Days to Meet Goals 3 Treatment Plan OT Treatment Plan ADL Training,Functional Mobility,Patient/Family Education,Discharge Planning Discharge Recommendations OT Discharge Home with Assistance,Outpatient PT Recommendations Home Equipment Needs shower chair Transportation Needs Private Vehicle at Discharge
[2025-02-01 09:12] VITALS: BP 141/58; PULSE 76
[2025-02-01] MEDS: CHOLECALCIFEROL (VITAMIN D3) 1,000 UNIT TABLET 4000 UNIT PO (09:12)
[2025-02-01] MEDS: ASPIRIN EC 81 MG TABLET PO (09:12)
[2025-02-01] MEDS: PANTOPRAZOLE DR 40 MG TABLET PO (09:12)
--- NOTE | 2025-02-01 11:09 | PC.NURSE ---
Pt discharged home at 0945, escorted off floor in wheelchair accompanied by spouse and hospital staff. IV removed, discharge teaching completed including new medications, wound care and follow up appointments. Patient left the floor with all belongings.
== END 2025-02-01 09:45 | disposition home or self-care (01) ==
LOC: OR 14:56 → AC 15:59
PROVIDERS: PCP Registered Nurse Diabetes Educator; Referring Provider Orthopaedic Surgery Adult Reconstructive Orthopaedic Surgery; Visit Provider Orthopaedic Surgery Adult Reconstructive Orthopaedic Surgery
PROC: (CPT 27130; principal; 2025-01-31 14:45)
DX: M16.11 Unilateral primary osteoarthritis, right hip (principal); G47.33 Obstructive sleep apnea (adult) (pediatric); M25.751 Osteophyte, right hip
CPT/HCPCS: 27130; 0054T; 73502; 76000; 97161; 97165; 97535; C1776; J0689; J1100; J1171; J1885; J2405; J2704; J3010; J7120